=== PATIENT | female | born 2000 | race African-American/Black ===

== ENCOUNTER 2022-12-30 12:53 | Outpatient (CLI) | payer SELFPAY ==
[~2022-12-30 12:53] MED LIST: CEPHALEXIN500 M1 PO; ZITHROMAX Z PA250 MG PO
--- NOTE | 2022-12-30 13:00 | NUR ---
Pt arrived on unit ambulatory with concerns for falling at work at hitting her stomach on a play structure. Pt denies any cramping, abdominal pain or vaginal bleeding and reports normal movement. EFM and toco monitor started. Difficult tracing FHR due to age. Dr. Carson notified. See physician notification for details.
[2022-12-30 13:05] VITALS: BP 113/63; PULSE 80
[2022-12-30 13:16] VITALS: TEMP 97.9
[2022-12-30] MEDS ORDERED: PRENATAL (13:23)
[2022-12-30] MEDS ORDERED: LR 1,000 ML IV PRN (13:30)
[2023-05-06] MEDS ORDERED: IBU800 M1 PO (08:29)
[2023-05-06] MEDS ORDERED: ROXICODONE 55 MG/TAB PO (08:29)
== END 2022-12-30 13:35 | disposition home or self-care (01) ==
LOC: LDRO 12:53
DX: O9A.212 Injury, poisoning and certain other consequences of external causes complicating pregnancy, second trimester (principal); W19.XXXA Unspecified fall, initial encounter; Z3A.22 22 weeks gestation of pregnancy

== ENCOUNTER 2023-04-28 10:01 | Outpatient (CLI) | payer BC ==
[~2023-04-28] VITALS: Ht 160 cm; Wt 87.7 kg
[~2023-04-28 10:01] MED LIST changes: +PRENATAL
[2023-04-28 10:13] VITALS: BP 127/77; PULSE 18; TEMP 98.4
--- NOTE | 2023-04-28 10:56 | NUR ---
1013 PATIENT HERE FOR COMPLAINTS OF CONTRACTIONS SINCE 0600 THIS MORNING. EFM ON FHT 135 WITH ACCELERATIONS NOTED. BABY VERY ACTIVE. CONTRACTIONS IRREGULAR AND PATIENT ABLE TO TALK THROUGH THEM. ASSESSMENT COMPLETED. SVE 3. DR SCHULTZ CALLED OF ALL ABOVE INFORMATION AND ORDERS GIVEN TO DISMISS TO HOME IF NO CHANGES AFTER HOUR.
[2023-04-28 11:21] VITALS: BP 127/67; PULSE 74
--- NOTE | 2023-04-28 11:23 | NUR ---
1125 NO CHANGES NOTED, SVE UNCHANGED. DENIES NEEDS. ORDERS FROM DR SCHULTZ TO DISMISS TO HOME TO FOLLOW UP WITH HIM NEXT WEEK.
== END 2023-04-28 11:43 | disposition home or self-care (01) ==
LOC: LDRO 10:01
DX: O62.9 Abnormality of forces of labor, unspecified (principal); Z3A.00 Weeks of gestation of pregnancy not specified

== ENCOUNTER 2023-05-04 03:19 | Outpatient (CLI) | payer OTHER ==
[~2023-05-04] VITALS: Ht 160 cm; Wt 90.0 kg
--- NOTE | 2023-05-04 04:05 | NUR ---
0330- PATIENT ARRIVED ON UNIT VIA WHEELCHAIR WITH BOYFRIEND. PATIENT DENIES LEAKING OF FLUID. PATIENT STATES CONTRACTIONS STARTED AROUND 1800 LAST EVENING. EFMX2 APPLIED.
[2023-05-04 04:36] VITALS: BP 126/83; PULSE 80
--- NOTE | 2023-05-04 05:01 | NUR ---
0450- PATIENT EDUCATED ON STAYING WELL HYDRATED, MONITORING CONTRACTIONS, AND LABOR PRECAUTIONS. PATIENT VERBALIZES UNDERSTANDING. QUESTIONS INVITED AND ANSWERED. PATIENT AMBULATORY OFF UNIT WITH BOYFRIEND.
[2023-05-04] MEDS ORDERED: TYLENOL 325MG325 MG PO (17:43)
[2023-05-06] MEDS ORDERED: ROXICODONE 55 MG/TAB PO (08:29)
[2023-05-06] MEDS ORDERED: IBU800 M1 PO (08:29)
== END 2023-05-04 04:50 | disposition home or self-care (01) ==
LOC: LDRO 03:19 → LDR 04:22
DX: O47.9 False labor, unspecified (principal); Z3A.00 Weeks of gestation of pregnancy not specified